=== PATIENT | female | born 1995 | race Hispanic/Latino ===

== ENCOUNTER 2018-08-04 19:33 | Emergency (ER) | payer BC, OTHER ==
[~2018-08-04] VITALS: Ht 162.6 cm; Wt 56.8 kg
[2018-08-04] MEDS ORDERED: ZOFR4TAB16 PO (19:54)
[2018-08-04] MEDS ORDERED: CLON0.5T8 PO (19:54)
[2018-08-04 20:49] LABS: BASO % 0.4 % (0.0-1.0); EOS # 0.1 10^3/uL (0.0-0.50); EOS % 1.3 % (0.0-3.0); HEMATOCRIT 42.1 % (36.0-47.0); HEMOGLOBIN 13.6 g/dl (12.0-15.5); LYMPH # 2.7 10^3/uL (1.5-6.5); LYMPH % 28.4 % (24.0-44.0); MEAN CORPUSCULAR HEMOGLOBIN 27.3 pg (27.0-33.0); MEAN CORPUSCULAR HGB CONC 32.3 g/dl (32.0-36.5); MEAN CORPUSCULAR VOLUME 84.5 fl (80.0-96.0); MONO # 0.6 10^3/uL (0.0-0.8); MONO % 6.7 % (0.0-5.0); NEUTROPHILS % 62.9 % (36.0-66.0); PLATELET COUNT, AUTOMATED 246 10^3/uL (150-450); RED BLOOD COUNT 4.98 10^6/uL (4.00-5.40); WHITE BLOOD COUNT 9.5 10^3/uL (4.0-10.0)
[2018-08-04 21:11] LABS: HCG, SERUM QUALITATIVE NEGATIVE (NEGATIVE)
[2018-08-04] MEDS ORDERED: ONDANSETRON 4MG/2ML VIAL (J2405) IV ONE (21:15)
[2018-08-04] MEDS ORDERED: NS 1,000 ML IV ONE (21:15)
[2018-08-04 21:19] LABS: ALBUMIN 3.4 GM/DL (3.2-5.2); ALT/SGPT 17 U/L (12-78); BILIRUBIN,DIRECT 0.1 MG/DL (0.0-0.2); BILIRUBIN,TOTAL 0.6 MG/DL (0.2-1.0); BLOOD UREA NITROGEN 10 MG/DL (7-18); CALCIUM LEVEL 8.9 MG/DL (8.5-10.1); CARBON DIOXIDE LEVEL 24 MEQ/L (21-32); CHLORIDE LEVEL 106 MEQ/L (98-107); CREATININE FOR GFR 0.74 MG/DL (0.55-1.30); GLOMERULAR FILTRATION RATE > 60.0 (>60); GLUCOSE, FASTING 65 MG/DL (70-100); LIPASE 105 U/L (73-393); SODIUM LEVEL 140 MEQ/L (136-145); TOTAL PROTEIN 7.7 GM/DL (6.4-8.2)
[2018-08-04 21:38] LABS: CK-MB VALUE MASS < 1.0 NG/ML (<3.6); CPK CREATINE PHOSPHOKINASE 77 U/L (26-192); TROPONIN I < 0.02 NG/ML (< 0.10)
[2018-08-04] MEDS ORDERED: METOCLOPRAMIDE INJ 10MG/2ML VIAL (J2765) IV ONE (22:15)
[2018-08-04] MEDS ORDERED: GI COCKTAIL 50ML BTL(HYOSCYAMINE/MAALOX/LIDOCAINE VISCOUS)(1:3:1) PO ONE (22:15)
[2018-08-04] MEDS ORDERED: ONDA4TAB6 PO (22:52)
[2018-08-04] MEDS ORDERED: MACR100C43 PO (22:52)
[2018-08-04 23:05] VITALS: BP 98/64
[2018-08-04] MEDS ORDERED: NITROFURANTOIN (MACROBID) 100 MG CAP PO ONE (23:15)
--- NOTE | 2018-08-05 02:23 | REP ---
Clinical: Chest and lower abdominal pain . Comparison: None . Technique: PA and lateral. Findings: The mediastinum and cardiac silhouette are normal. The lung roy are clear and without acute consolidation, effusion, or pneumothorax. The skeletal structures are intact and normal. Impression: 1. No acute cardiopulmonary process. Electronically Signed by Omega Pérez MD 08/05/2018 02:14 A
--- NOTE | 2018-08-05 15:08 | ECGEPIP ---
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
== END 2018-08-04 23:23 | disposition home or self-care (01) ==
LOC: M ED 19:33
DX: N39.0 Urinary tract infection, site not specified (principal); K21.9 Gastro-esophageal reflux disease without esophagitis; F41.9 Anxiety disorder, unspecified; Q87.40 Marfan syndrome, unspecified; Z79.899 Other long term (current) drug therapy; Z88.0 Allergy status to penicillin; Z88.8 Allergy status to other drugs, medicaments and biological substances
CPT/HCPCS: 71046; 80048; 80076; 81001; 82550; 82553; 83690; 84484; 84703; 85025; 87086; 93005; 96361; 96374; 96375; 99284; J2405; J2765

== ENCOUNTER → 2018-10-28 | Outpatient (CLI) | payer BC, OTHER ==
[~2018-10-28] MED LIST: APRITAB PO; CLAR10CA3 PO; CLON0.5T17 PO; CLON0.5T2 PO; FAMO1TAB11; FLON1SPR NARES; HYDR-3363 PO; LEXA5TAB13 PO; LITH300C; LITH300C PO; LITH600C; LORA1TAB4 PO; MACR100C43 PO; METHACHOLINE KIT (J7674) INH ONE; MIRA3350 PO; ONDA4TAB6 PO; PANT-23 PO; PROTPAK PO; PROV108A INH; REGL5TAB2 PO; ZANT150T40 PO; ZOFR4TAB16 PO; [UNRECOGNIZED DRUG - OTHER] PO; medical marijuana PO
--- NOTE | 2018-10-28 07:55 | PFTRPT ---
Height: 64.00 Inches Weight: 108.00 Lbs BSA: 1.51 Diagnosis: R07.9 DATE OF PROCEDURE: 10/28/2018 ORDERED BY: Dr. Lanza Spirometry: Study of excellent technical quality. Forced vital capacity normal. FEV1 in proportion. Obstructive index is, therefore, normal. Flow Volume Loop: Expiratory limb of the flow volume loop is normal. Lung Volumes: Total lung capacity normal. Residual volume suggests some degree of air trapping. Diffusing Capacity: Diffusing capacity is reduced but is appropriate for alveolar volume. Hemoglobin: No hemoglobin available for correction. Airway Mechanics: Airway resistance and conductance are normal. IMPRESSION: Cannot rule out a degree of air trapping. Decreased diffusing capacity. Please correlate clinically. MTDD
--- NOTE | 2018-10-28 08:56 | PFTRPT ---
Height: 64.00 Inches Weight: 108.00 Lbs BSA: 1.51 Diagnosis: R07.9 DATE OF PROCEDURE: 10/28/2018 ORDERED BY: Dr. Lanza INTERPRETATION: Study of excellent technical quality. Under protocol, methacholine was administered. At a dose of 2.5 mg or 13.875 CDUs, a 27% decline in the FEV1 was noted. PC of 1.25 is significant. Flow rates did return to baseline post bronchodilator administration. IMPRESSION: Positive methacholine challenge study. MTDD
== END ==
LOC: M CARPUL 06:24
PROVIDERS: ATTEND Internal Medicine Cardiovascular Disease
DX: R07.9 Chest pain, unspecified (principal); Q87.410 Marfan syndrome with aortic dilation
CPT/HCPCS: 94010; 94070; 94726; 94729; J7674

== ENCOUNTER 2018-11-29 18:59 | Emergency (ER) | payer OTHER ==
[~2018-11-29] VITALS: Ht 162.6 cm; Wt 52.7 kg
[~2018-11-29 18:59] MED LIST changes: -APRITAB PO; -CLAR10CA3 PO; -CLON0.5T17 PO; -CLON0.5T2 PO; +CLON0.5T8 PO; -FAMO1TAB11; -FLON1SPR NARES; -HYDR-3363 PO; -LEXA5TAB13 PO; -LITH300C; -LITH300C PO; -LITH600C; -LORA1TAB4 PO; -METHACHOLINE KIT (J7674) INH ONE; -MIRA3350 PO; -PANT-23 PO; -PROTPAK PO; -PROV108A INH; -REGL5TAB2 PO; -ZANT150T40 PO; -[UNRECOGNIZED DRUG - OTHER] PO; -medical marijuana PO
[2018-11-29] MEDS ORDERED: LITH300C PO (19:36)
[2018-11-29] MEDS ORDERED: HYDR-3363 PO (19:41)
[2018-11-29] MEDS ORDERED: APRITAB PO (19:41)
[2018-11-29] MEDS ORDERED: PROTPAK PO (19:41)
[2018-11-29] MEDS ORDERED: PROV108A INH (19:41)
[2018-11-29] MEDS ORDERED: CLAR10CA3 PO (19:46)
[2018-11-29] MEDS ORDERED: FLON1SPR NARES (19:46)
[2018-11-29] MEDS ORDERED: REGL5TAB2 PO (19:46)
[2018-11-29] MEDS ORDERED: ZANT150T40 PO (19:46)
[2018-11-29] MEDS ORDERED: METAL LOCK LOOP XX ONE (20:13)
[2018-11-29] MEDS ORDERED: clonazePAM 1 MG TAB PO ONE (20:30)
[2018-11-29 21:13] LABS: HEMATOCRIT 39.7 % (36.0-47.0); HEMOGLOBIN 12.7 g/dl (12.0-15.5); MEAN CORPUSCULAR HEMOGLOBIN 26.9 pg (27.0-33.0); MEAN CORPUSCULAR VOLUME 84.1 fl (80.0-96.0); PLATELET COUNT, AUTOMATED 296 10^3/uL (150-450); RED BLOOD COUNT 4.72 10^6/uL (4.00-5.40); WHITE BLOOD COUNT 7.8 10^3/uL (4.0-10.0)
[2018-11-29 21:23] LABS: HCG, SERUM QUALITATIVE NEGATIVE (NEGATIVE)
[2018-11-29 21:26] LABS: AMPHETAMINES LEVEL URINE NEGATIVE (NEGATIVE); BARBITURATES URINE NEGATIVE (NEGATIVE); BENZODIAZEPINES URINE NEGATIVE (NEGATIVE); CANNABINOIDS URINE NEGATIVE (NEGATIVE); COCAINE METABOLITE URINE NEGATIVE (NEGATIVE); METHADONE URINE NEGATIVE (NEGATIVE); OPIATES URINE NEGATIVE (NEGATIVE); PHENCYCLIDINE URINE NEGATIVE (NEGATIVE)
[2018-11-29 21:28] LABS: ACETAMINOPHEN LEVEL < 2.0 UG/ML (10.0-30.0); ALBUMIN 3.5 GM/DL (3.2-5.2); ALT/SGPT 14 U/L (12-78); BILIRUBIN,DIRECT < 0.1 MG/DL (0.0-0.2); BILIRUBIN,TOTAL 0.2 MG/DL (0.2-1.0); BLOOD UREA NITROGEN 10 MG/DL (7-18); CALCIUM LEVEL 8.9 MG/DL (8.5-10.1); CARBON DIOXIDE LEVEL 29 MEQ/L (21-32); CHLORIDE LEVEL 106 MEQ/L (98-107); CREATININE FOR GFR 0.84 MG/DL (0.55-1.30); ETHYL ALCOHOL (ETHANOL) 0.003 % (0.000-0.010); GLOMERULAR FILTRATION RATE > 60.0 (>60); GLUCOSE, FASTING 81 MG/DL (70-100); POTASSIUM SERUM 3.7 MEQ/L (3.5-5.1); SALICYLATE LEVEL < 1.7 MG/DL (5.0-30.0); SODIUM LEVEL 141 MEQ/L (136-145); TOTAL PROTEIN 7.3 GM/DL (6.4-8.2)
[2018-11-29 23:04] VITALS: BP 106/63
--- NOTE | 2018-11-30 08:39 | REP ---
CHEST PA AND LATERAL: 11/29/2018. Comparison: 08/04/2018. Clinical history: Chest pain. Findings: The lung roy are well inflated. There is no pleural effusion, acute infiltrate, atelectasis or mass. Heart is not enlarged. There is no vascular redistribution. The aorta is normal. Airway is intact. There is dextroconvex curve of the lower thoracic spine centered at about T10. No acute or focal bone lesion in the spine, ribs, clavicles, shoulders. No free air under the diaphragm. Impression: 1. No acute cardiopulmonary change. Electronically Signed by Jay Orozco MD 11/30/2018 07:30 P
--- NOTE | 2018-12-02 08:18 | ECGEPIP ---
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
== END 2018-11-29 23:09 | disposition home or self-care (01) ==
LOC: M ED 18:59
DX: F41.9 Anxiety disorder, unspecified (principal); F43.10 Post-traumatic stress disorder, unspecified; Q87.40 Marfan syndrome, unspecified; Z88.0 Allergy status to penicillin; Z88.8 Allergy status to other drugs, medicaments and biological substances; Z79.899 Other long term (current) drug therapy
CPT/HCPCS: 71046; 80048; 80076; 80178; 80307; 84443; 84703; 85027; 93005; 99284; G0480

== ENCOUNTER 2018-12-03 11:10 | Inpatient (IN) | payer OTHER ==
[~2018-12-03] VITALS: Ht 162.6 cm; Wt 54.5 kg
[~2018-12-03 11:10] MED LIST changes: +APRITAB PO; +CLAR10CA3 PO; +FLON1SPR NARES; +HYDR-3363 PO; +LITH300C PO; +PROTPAK PO; +PROV108A INH; +REGL5TAB2 PO; +ZANT150T40 PO
[2018-12-03] MEDS ORDERED: medical marijuana PO (11:46)
[2018-12-03 12:22] LABS: HEMATOCRIT 38.8 % (36.0-47.0); HEMOGLOBIN 12.4 g/dl (12.0-15.5); MEAN CORPUSCULAR HEMOGLOBIN 27.3 pg (27.0-33.0); MEAN CORPUSCULAR VOLUME 85.5 fl (80.0-96.0); PLATELET COUNT, AUTOMATED 137 10^3/uL (150-450); RED BLOOD COUNT 4.54 10^6/uL (4.00-5.40); WHITE BLOOD COUNT 5.8 10^3/uL (4.0-10.0)
[2018-12-03 12:45] LABS: HCG, SERUM QUALITATIVE NEGATIVE (NEGATIVE)
[2018-12-03 12:49] LABS: ACETAMINOPHEN LEVEL < 2.0 UG/ML (10.0-30.0); ALBUMIN 3.4 GM/DL (3.2-5.2); ALT/SGPT 11 U/L (12-78); BILIRUBIN,DIRECT < 0.1 MG/DL (0.0-0.2); BILIRUBIN,TOTAL 0.2 MG/DL (0.2-1.0); BLOOD UREA NITROGEN 12 MG/DL (7-18); CALCIUM LEVEL 8.8 MG/DL (8.5-10.1); CARBON DIOXIDE LEVEL 27 MEQ/L (21-32); CHLORIDE LEVEL 107 MEQ/L (98-107); CREATININE FOR GFR 0.78 MG/DL (0.55-1.30); ETHYL ALCOHOL (ETHANOL) < 0.003 % (0.000-0.010); GLOMERULAR FILTRATION RATE > 60.0 (>60); GLUCOSE, FASTING 107 MG/DL (70-100); POTASSIUM SERUM 3.9 MEQ/L (3.5-5.1); SALICYLATE LEVEL < 1.7 MG/DL (5.0-30.0); SODIUM LEVEL 140 MEQ/L (136-145); TOTAL PROTEIN 7.1 GM/DL (6.4-8.2)
[2018-12-03 13:00] LABS: AMPHETAMINES LEVEL URINE NEGATIVE (NEGATIVE); BARBITURATES URINE NEGATIVE (NEGATIVE); BENZODIAZEPINES URINE NEGATIVE (NEGATIVE); CANNABINOIDS URINE POSITIVE (NEGATIVE); COCAINE METABOLITE URINE NEGATIVE (NEGATIVE); METHADONE URINE NEGATIVE (NEGATIVE); OPIATES URINE NEGATIVE (NEGATIVE); PHENCYCLIDINE URINE NEGATIVE (NEGATIVE)
[2018-12-03] MEDS ORDERED: traZODone 50 MG TAB PO PRN (14:30)
[2018-12-03] MEDS ORDERED: MAALOX 30 ML SUSP *UDC PO PRN (14:30)
[2018-12-03] MEDS ORDERED: MOM 30ML SUSPENSION UDC PO PRN (14:30)
[2018-12-03] MEDS ORDERED: ACETAMINOPHEN TAB 650MG DOSE (2X325MG) PO PRN (14:30)
[2018-12-03] MEDS ORDERED: CLON0.5T17 PO (15:03)
[2018-12-03] MEDS ORDERED: ONDA4TAB6 PO (15:03)
[2018-12-03] MEDS ORDERED: LORA1TAB12 PO (15:03)
[2018-12-03] MEDS ORDERED: PANT-23 PO (15:03)
[2018-12-03 15:30] VITALS: BP 118/82
[2018-12-03] MEDS ORDERED: ALBUTEROL 90 MCG/ACT 8GM HFA INHALER INH PRN (18:00)
[2018-12-03] MEDS: hydrOXYzine 50 MG TAB PO PRN (18:50)
[2018-12-03] MEDS: IBUPROFEN 400 MG TAB PO PRN (18:50)
[2018-12-03] MEDS: FLUTICASONE PROP 0.05% NASAL SPRAY 16 GM (FLONASE) NARES SCH (20:48)
[2018-12-03] MEDS: OLANZapine ORAL DISINTEGRATING TAB 5MG PO PRN (20:49)
[2018-12-04 06:29] VITALS: BP 84/52
[2018-12-04] MEDS: PANTOPRAZOLE 40MG TAB (PROTONIX) PO SCH (08:44)
[2018-12-04] MEDS: OLANZapine ORAL DISINTEGRATING TAB 5MG PO PRN ×2 (08:45→19:02)
[2018-12-04] MEDS: FAMOTIDINE 20 MG TAB PO SCH (09:00)
[2018-12-04] MEDS: IBUPROFEN 400 MG TAB PO PRN (09:46)
[2018-12-04] MEDS: LORATADINE 10 MG TAB PO SCH (09:46)
[2018-12-04] MEDS: FLUTICASONE PROP 0.05% NASAL SPRAY 16 GM (FLONASE) NARES SCH ×2 (09:46→21:24)
[2018-12-04] MEDS: DESOGESTREL PO SCH (09:47)
[2018-12-04] MEDS: ETHINYL ESTRADIOL PO SCH (09:47)
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
[2018-12-04 13:41] LABS: COMPLEMENT C3 119 MG/DL (90-180); COMPLEMENT C4 38 MG/DL (10-40)
--- NOTE | 2018-12-04 13:52 | HPE ---
DATE OF ADMISSION: 12/04/2018 This is a hospitalist history and physical on a patient admitted to inpatient mental health unit. PAST MEDICAL HISTORY: Asthma. She claims to have Marfan syndrome. She has a lot of upper respiratory infections. She had full pulmonary function testing, methacholine challenge 10/28/2018. Had a positive methacholine challenge suggesting bronchospastic disease. Diffusing capacity was normal. ALLERGIES: PENICILLIN, ADHESIVE TAPE, LAMICTAL. SOCIAL HISTORY: Per psychiatric history and physical (H and P). MEDICATIONS: - albuterol inhaler - Klonopin 0.5 mg twice a day as needed - oral contraceptive - fluticasone one spray twice a day - Claritin 10 mg daily - lorazepam 1 mg twice a day as needed - Zofran 4 mg every 6 hours as needed - Protonix 40 mg daily - ranitidine 150 mg daily REVIEW OF SYSTEMS: Says she has occasional wheezing. She says her hands and feet are stiff in the morning and painful. PHYSICAL EXAMINATION: Vital signs stable. She is alert and conversant, in no distress. Pupils equal, round, and reactive to light. Pharynx benign. Neck: No masses. Lungs: Entirely clear. Heart: Regular rate and rhythm. Abdomen: Soft, nontender, no masses. No peripheral edema. Normal strength in the arms and legs. She had no heart murmur. Arm span appeared grossly normal but was not measured. IMPRESSION: 1. Asthma. Continue her albuterol on an as-needed basis. She is not on daily controller medications, so her degree of asthma must be relatively mild. 2. Presumed gastroesophageal reflux disease (GERD). Continue her Protonix, which has been ordered. She augments this with ranitidine, which is currently on nationwide recall. She has Pepcid ordered here. 3. Various psychiatric conditions per psychiatry. Hospitalists are available for medical issues.
[2018-12-04 16:13] VITALS: BP 108/67
[2018-12-04] MEDS: traZODone 25MG PER 1/2 TABLET PO SCH (21:24)
--- NOTE | 2018-12-04 21:36 | REPVR ---
PROCEDURE INFORMATION: Exam: MR Head Without and With Contrast Exam date and time: 12/04/2018 12:32 PM Clinical history: 23 years old, female; Altered mental status/memory loss; Additional info: Memory loss, marino vasculitis TECHNIQUE: Imaging protocol: MR of the head without and with intravenous contrast. Contrast material: PROHANCE; Contrast volume: 10 ml; Contrast route: IV; COMPARISON: No relevant prior studies available. FINDINGS: Ventricular and subarachnoid spaces are normal. Major vascular flow voids at the skull base are preserved. No extra-axial fluid collection. No midline shift or intracranial mass effect. No pathologic white matter signal. No diffusion restriction. No pathologic intracranial enhancement. Visualized paranasal sinuses and mastoid air cells are clear. IMPRESSION: Unremarkable MRI of the brain with and without contrast. Electronically signed by: Dinesh Turner On 12/04/2018 21:35:46 PM
[2018-12-05] MEDS: PANTOPRAZOLE 40MG TAB (PROTONIX) PO SCH (07:15)
[2018-12-05 07:39] VITALS: BP 104/69
--- NOTE | 2018-12-05 08:18 | MHIPNPDOC ---
[facility] Progress Note Progress Note Inpatient Progress Note Flora Carrington MRN: N/A Date of : N/A Date of Service: 12/05/2018 History of Present Illness The patient, a 23 year old woman with a reported history of anxiety, presents to the inpatient mental health unit reportedly due to displeasure with her outpatient provider, increasing anxiety, memory problems and difficulty focusing. She is difficult to interview as she is quite tangential with a very short attention span. The patient has a history of marijuana use, however, she has notably had difficulty over the past month with increasing memory problems, anxiety and lack of ability to focus. She had been having mood irritation and variability, but she had specifically denied that she had any suicidality. She reports having a history of seizures, however, they're unclear whether they are pseudo seizures or not. She reports that she was being referred to a neurologist as an outpatient. Her primary problem she reports is panic attacks. Interval History The patient is met with today. She reports that she still has anxiety and that the Atarax is not as helpful. She continues to deny any suicidal or homicidal ideation. The initial MRI came back negative. Lab test still pending. EEG is still pending for tomorrow. The patient asked if she would be able to be discharged tomorrow and subsequently then return for the EEG at a later time as she was noting that she felt fairly stressed in this environment. We did discuss at length medication options and approaches as well as psycho-education related to her treatments. She did say Lexapro was helpful in the past and wondered if she could be tried on it again. Discuss oxazepam as an option; however, we would not be able to try it prior to the EEG. No major behavioral problems overnight. No significant difficulties. Review Of Systems Continued anxiety, some episodes of panic. Psychotherapy None on this visit. Vital Signs Reviewed. Mental Status Examination General: Fair hygiene Speech: Less pressured. Thought processes: More focused. MSK: Smooth and coordinated gait, no signs of tremors or involuntary orofacial movements Thought content: Preservation on anxiety Abstract reasoning, and computation: Intact Description of associations: Intact Description of abnormal or psychotic thoughts: Denies any suicidal or homicidal ideation. Denies any auditory or visual hallucinations. Does not appear to be responding to internal stimuli. Does not appear to be endorsing any bizarre or paranoid ideation. Judgment: Fair Insight: Limited Orientation: Alert and orientated 3 Cognition: Improved. Recent and remote memory: Mildly improved. Attention span and concentration: Improved. Fund of knowledge: Adequate Mood: "fine" Affect: Flat with a constricted range. Diagnoses Unspecified trauma stressor related disorder. Unspecified anxiety disorder. Rule out substance induced versus medically induced. Unspecified neurocognitive disorder. Rule out autism. Assessment and Plan Unspecified anxiety/trauma stressor related disorder: Start Lexapro 5 mg daily. Spent an extensive amount of time discussing risk, benefits, and potential side effects with patient as well as alternative options. Discussed the use of oxazepam in the future, but would not be able to try this evening due to EEG. Patient wishes to go tomorrow. Does not meet further involuntary criteria, and thus will be planned for a discharge tomorrow. Disposition Patient will be discharged tomorrow and she wishes to go and does not meet involuntary criteria and does not wished for further voluntary admission. Time Spent 30 minutes with greater than 50% of time spent on counseling such as coordination of care in extensive session discussing the psycho-education of anxiety, depression, PTSD, neurocognitive problems and marijuana use. Vital Signs Vital Signs Date Time Temp Pulse Resp B/P (MAP) Pulse Ox O2 Delivery O2 Flow Rate FiO2 12/05/18 07:39 97.0 95 18 104/69 (81) 12/03/18 14:18 99 Room Air Laboratory Data 24H Labs Laboratory Tests 2 12/04/18 12:54: Complement C3 119, Complement C4 38 Current Medications Current Medications Medications (Trade) Dose Ordered Sig/Mihir Route PRN Reason Start Time Stop Time Status Last Admin Dose Admin Acetaminophen (Tylenol Tab) 650 mg Q6HP PRN PO HEADACHE or DISCOMFORT 12/03/18 14:30 12/03/18 17:56 DC Al Hydrox/Mg Hydrox/Simethicone (Mylanta) 30 ml Q4HP PRN PO HEARTBURN/INDIGESTION 12/03/18 14:30 Albuterol Sulfate (Proventil, Ventolin Hfa) 2 puff QIDP PRN INH SHORTNESS OF BREATH 12/03/18 18:00 12/03/18 19:54 Famotidine (Pepcid) 20 mg DAILY PO 12/04/18 09:00 Fluticasone Propionate (Flonase 0.05% Nasal [place]) 1 spray BID NARES 12/03/18 21:00 12/04/18 21:24 Home Med (Med Rec Complete!) ASDIRECTED XX 12/03/18 15:15 12/03/18 15:07 DC Hydroxyzine HCl (Atarax) 50 mg Q6HP PRN PO ANXIETY/AGITATION 12/03/18 14:30 12/03/18 18:50 Ibuprofen (Advil) 400 mg Q6HP PRN PO PAIN 12/03/18 18:00 12/04/18 09:46 Loratadine (Claritin) 10 mg DAILY PO 12/04/18 09:00 12/04/18 09:46 Magnesium Hydroxide (Milk Of Magnesia) 30 ml DAILYPRN PRN PO CONSTIPATION 12/03/18 14:30 Miscellaneous (Unresolved Patient Own Med Order) SEE LABEL COMMENTS DAILY XX 12/03/18 09:00 12/03/18 19:21 DC Olanzapine (ZyPREXA ZYDIS) 5 mg Q6HP PRN PO ANXIETY/AGITATION 12/03/18 20:15 12/04/18 20:15 DC 12/04/18 19:02 Pantoprazole Sodium (Protonix) 40 mg DAILY PO 12/04/18 09:00 12/05/18 07:15 Patient Own Medication (Patient'S Own Med) 1 TABLET DAILY PO 12/04/18 09:00 12/04/18 09:47 Trazodone HCl (Desyrel) 25 mg QHS PO 12/04/18 21:00 12/04/18 21:24 Trazodone HCl (Desyrel) 50 mg QHSP PRN PO INSOMNIA 12/03/18 14:30 12/04/18 10:13 DC 12/03/18 22:10 Allergies Coded Allergies: Penicillins (Verified Allergy, Intermediate, hives, 11/29/18) hives lamotrigine (Verified Allergy, Intermediate, hives, 08/04/18) hives adhesive tape (Verified Allergy, Mild, redness, 11/29/18) pt states she is ok with EKG stickers but not tele stickers on for a long time MODESTA FELDMAN DO Dec 05, 2018 08:18
[2018-12-05] MEDS: FAMOTIDINE 20 MG TAB PO SCH (08:32)
[2018-12-05] MEDS: DESOGESTREL PO SCH (08:32)
[2018-12-05] MEDS: LORATADINE 10 MG TAB PO SCH (08:32)
[2018-12-05] MEDS: FLUTICASONE PROP 0.05% NASAL SPRAY 16 GM (FLONASE) NARES SCH ×2 (08:32→21:10)
[2018-12-05] MEDS: ETHINYL ESTRADIOL PO SCH (08:32)
[2018-12-05] MEDS ORDERED: INFLUENZA QUADRIVALENT PF VACCINE 0.5ML SYRINGE (90686) IM ONE (09:00)
[2018-12-05] MEDS ORDERED: FAMOTIDINE 20 MG TAB PO PRN (11:00)
[2018-12-05] MEDS: hydrOXYzine 50 MG TAB PO PRN (12:09)
[2018-12-05] MEDS: IBUPROFEN 400 MG TAB PO PRN (12:11)
[2018-12-05 18:00] VITALS: BP 127/86
[2018-12-05] MEDS ORDERED: ESCITALOPRAM OXALATE 5MG TABLET (LEXAPRO) PO ONE (20:15)
[2018-12-05] MEDS: traZODone 25MG PER 1/2 TABLET PO SCH (21:00)
[2018-12-06 06:30] VITALS: BP 105/59
[2018-12-06] MEDS ORDERED: PANTOPRAZOLE 40MG TAB (PROTONIX) PO SCH (07:00)
[2018-12-06] MEDS: DESOGESTREL PO SCH (08:43)
[2018-12-06] MEDS: ETHINYL ESTRADIOL PO SCH (08:43)
[2018-12-06] MEDS: LORATADINE 10 MG TAB PO SCH (08:43)
[2018-12-06] MEDS: FLUTICASONE PROP 0.05% NASAL SPRAY 16 GM (FLONASE) NARES SCH (08:43)
--- NOTE | 2018-12-06 09:41 | MHDSPDOC ---
[facility] Discharge Summary Discharge Summary DATE OF ADMISSION: Dec 03, 2018 at 14:29 DATE OF DISCHARGE: 12/06/18 Discharge Flora Carrington MRN: N/A Date of : N/A Date of Service: 12/06/2018 Diagnoses Unspecified trauma stressor related disorder. Unspecified anxiety disorder. Rule out substance induced versus medically induced. Unspecified neurocognitive disorder. Rule out autism. History of Present Illness The patient, a 23 year old woman with a reported history of anxiety, presents to the inpatient mental health unit reportedly due to displeasure with her outpatient provider, increasing anxiety, memory problems and difficulty focusing. She is difficult to interview as she is quite tangential with a very short attention span. The patient has a history of marijuana use, however, she has notably had difficulty over the past month with increasing memory problems, anxiety and lack of ability to focus. She had been having mood irritation and variability, but she had specifically denied that she had any suicidality. She reports having a history of seizures, however, they're unclear whether they are pseudo seizures or not. She reports that she was being referred to a neurologist as an outpatient. Her primary problem she reports is panic attacks. Consultants Involved Hospitalist/PCP screening Treatment and Progress On The Unit The patient was admitted to the unit. She had denied any suicidality for the entirety of her presentation from the ER to now. She primarily reported that she had come because she was unpleased with her outpatient care. She was evaluated and further workup was done as her cognitive scores were quite low much out of the proportion to be except for anxiety. Her initial laboratory work was unremarkable, demonstrating no signs, changes in her compliment factors and negative MRI. She was initially triage to an EEG and she initially reported having dissociative episodes. The patient was stopped on her clonazepam as she been given Ativan at he ER in [place]. After discussing with the patient at length, she reported that she was amenable to being restarted on Lexapro as she reported having done well on it in the past. Discussed the risks and benefits with the patient extensively. The patient did have improvement in her cognition with better intention as she went through her admission, which further suggested that the patient was likely possible relation to her marijuana use for cognitive impairment and panic attacks, however, the patient did not wish to consider this. She did well on the Lexapro and on the day of discharge, she had stated that she wished to go as she wondered if she could have her EG as an outpatient as she was more anxious in this setting. She had been denying a suicidalor homicidal ideation and had been able to attend to her basic needs, participate in her discharge planning and declined further voluntary admission and thus was not appropriate, thus was discharged in [facility] on the day of discharge. Discharge Assessment A 23-year-old woman with cognitive impairment and anxiety. It is unclear as to whether substance use from marijuana or potential medical cause could be contributing. Started her on an appropriate agent for anxiety and observed her, which she was able to tolerate it initially. Benzodiazepines were discussed, however, she will need close outpatient monitoring due to the history of marijuana use and a strong contract for ceasing of cannabis use in order to be treated with a benzodiazepine appropriately. Mental Status Examination General: Well dressed with good hygiene Speech: Spontaneous and fluid Thought processes: Linear and logical MSK: Smooth and coordinated gait, no signs of tremors or involuntary orofacial movements Thought content: Future orientated Abstract reasoning, and computation: Intact Description of associations: Intact Description of abnormal or psychotic thoughts: Denies any suicidal or homicidal ideation. Denies any auditory or visual hallucinations. Does not appear to be responding to internal stimuli. Does not appear to be endorsing any bizarre or paranoid ideation. Judgment: fair Insight: fair Orientation: Alert and orientated 3 Cognition: Mildly improved Recent and remote memory: Intact Attention span and concentration: Mildly improved Fund of knowledge: Adequate Mood: "okay" Affect: Euthymic with a full range Follow Up The social work team worked during the predischarge meeting in order to evaluate for further issues of lethality address them fully before discharge. They worked on safety planning with the patient's family members in order to ensure that the patient will have a safe and effective discharge. Time Spent The amount of time spent in the coordination of care for this patient was approximately 30 minutes. Sunday Vital Signs/I&Os Vital Signs Date Time Temp Pulse Resp B/P (MAP) Pulse Ox O2 Delivery O2 Flow Rate FiO2 12/06/18 06:30 98.2 107 16 105/59 (74) 12/03/18 14:18 99 Room Air Medications Scheduled Desogestrel-Ethinyl Estradiol (Apri 28 Day Tablet) 1 Each Tablet, 1 TAB PO DAILY, (Reported) Escitalopram Oxalate (Lexapro) 5 Mg Tablet, 5 MG PO QHS for mood for 7 Days, #7 Fluticasone Propionate (Flonase Allergy Relief) 9.9 Ml [place].susp, 1 SPRAY NARES BID, (Reported) Loratadine (Claritin) 10 Mg Capsule, 10 MG PO DAILY, (Reported) Pantoprazole Sodium (Pantoprazole Sodium) 40 Mg Tablet.dr, 40 MG PO DAILY, (Reported) Scheduled PRN Albuterol Sulfate (Proventil Hfa) 6.7 Gm Hfa.aer.ad, 2 PUFF INH QID PRN for SHORTNESS OF BREATH, (Reported) Ondansetron (Ondansetron Odt) 4 Mg Tab.rapdis, 4 MG PO Q6H PRN for NAUSEA OR VOMITING, (Reported) Ranitidine Hcl (Zantac) 150 Mg Tablet, 1 TAB PO DAILY PRN for HEARTBURN, (Reported) Allergies Coded Allergies: Penicillins (Verified Allergy, Intermediate, hives, 11/29/18) hives lamotrigine (Verified Allergy, Intermediate, hives, 08/04/18) hives adhesive tape (Verified Allergy, Mild, redness, 11/29/18) pt states she is ok with EKG stickers but not tele stickers on for a long time MODESTA FELDMAN DO Dec 06, 2018 09:41
[2018-12-06] MEDS ORDERED: LEXA5TAB13 PO (10:52)
[2018-12-06] MEDS ORDERED: ESCITALOPRAM OXALATE 5MG TABLET (LEXAPRO) PO SCH (21:00)
[2018-12-09 14:41] LABS: ANA (HEP2) Positive (.); ANTI DS-DNA AB <1:10 titer (.); Lyme Disease IgG/IgM Antibodie <0.91 ISR (0.00-0.90); Lyme Disease IgM Ab Quantitati <0.80 index (0.00-0.79); RNP ANTIBODY < 0.2 AI (0.0-0.9); SMITHS ANTIBODY < 0.2 AI (0.0-0.9); SSA SJOGRENS A >8.0 AI (0.0-0.9); SSB SJOGRENS B <0.2 AI (0.0-0.9)
== END 2018-12-06 12:00 | disposition home or self-care (01) | DRG 882 ==
LOC: M ED 11:10 → M ED INP 14:29 → M PSY 15:30
PROVIDERS: ADMIT Psychiatry & Neurology Psychiatry; ATTEND Psychiatry & Neurology Addiction Medicine
DX: F43.9 Reaction to severe stress, unspecified (principal); F19.280 Other psychoactive substance dependence with psychoactive substance-induced anxiety disorder; F41.9 Anxiety disorder, unspecified; R41.9 Unspecified symptoms and signs involving cognitive functions and awareness; Z88.0 Allergy status to penicillin; Z88.8 Allergy status to other drugs, medicaments and biological substances; Z91.048 Other nonmedicinal substance allergy status; J45.909 Unspecified asthma, uncomplicated; K21.9 Gastro-esophageal reflux disease without esophagitis; F84.0 Autistic disorder; Z79.899 Other long term (current) drug therapy

== ENCOUNTER 2018-12-10 14:17 | Emergency (ER) | payer OTHER ==
[~2018-12-10] VITALS: Ht 162.6 cm; Wt 55.5 kg
[~2018-12-10 14:17] MED LIST changes: +CLON0.5T17 PO; +LEXA5TAB13 PO; +LORA1TAB12 PO; +PANT-23 PO; +medical marijuana PO
[2018-12-10 16:32] LABS: BASO % 0.5 % (0.0-1.0); EOS # 0.1 10^3/uL (0.0-0.5); EOS % 1.1 % (0.0-3.0); HEMATOCRIT 35.4 % (36.0-47.0); HEMOGLOBIN 11.4 g/dl (12.0-15.5); LYMPH # 2.8 10^3/uL (1.5-5.0); LYMPH % 35.1 % (24.0-44.0); MEAN CORPUSCULAR HGB CONC 32.2 g/dl (32.0-36.5); MEAN CORPUSCULAR VOLUME 83.7 fl (80.0-96.0); MONO # 0.6 10^3/uL (0.0-0.8); MONO % 7.3 % (0.0-5.0); NEUTROPHILS # 4.4 10^3/uL (1.5-8.5); NEUTROPHILS % 55.7 % (36.0-66.0); PLATELET COUNT, AUTOMATED 194 10^3/uL (150-450); RED BLOOD COUNT 4.23 10^6/uL (4.00-5.40); WHITE BLOOD COUNT 7.9 10^3/uL (4.0-10.0)
--- NOTE | 2018-12-10 17:02 | REP ---
Head CT without contrast: History: Altered mental status. Comparison study: Comparison brain MRI study December 04, 2018. CT findings: Bone window settings demonstrate an intact bony calvarium. There is no evidence of skull fracture or incidental bony calvarial lesion. The visualized paranasal sinuses appear clear. No intraorbital abnormality is seen. On soft tissue window setting images; the lateral, third, and fourth ventricles are normal in size and position. Aguayo-white differentiation pattern is normal above and below the tentorium. There are is no evidence of intracranial hemorrhage. No mass, edema, infarction, or midline shift is seen. No extra-axial fluid collection is appreciated. Impression: Negative noncontrast head CT. Electronically Signed by Chau Ariza MD 12/10/2018 04:52 P
[2018-12-10 17:10] LABS: ACETAMINOPHEN LEVEL < 2.0 UG/ML (10.0-30.0); ALBUMIN 3.3 GM/DL (3.2-5.2); ALT/SGPT 15 U/L (12-78); BILIRUBIN,DIRECT < 0.1 MG/DL (0.0-0.2); BILIRUBIN,TOTAL 0.5 MG/DL (0.2-1.0); BLOOD UREA NITROGEN 11 MG/DL (7-18); CALCIUM LEVEL 8.9 MG/DL (8.5-10.1); CARBON DIOXIDE LEVEL 29 MEQ/L (21-32); CHLORIDE LEVEL 107 MEQ/L (98-107); CK-MB VALUE MASS < 1.0 NG/ML (<3.6); CPK CREATINE PHOSPHOKINASE 77 U/L (26-192); CREATININE FOR GFR 0.79 MG/DL (0.55-1.30); ETHYL ALCOHOL (ETHANOL) < 0.003 % (0.000-0.010); GLOMERULAR FILTRATION RATE > 60.0 (>60); GLUCOSE, FASTING 86 MG/DL (70-100); POTASSIUM SERUM 3.8 MEQ/L (3.5-5.1); SALICYLATE LEVEL < 1.7 MG/DL (5.0-30.0); SODIUM LEVEL 143 MEQ/L (136-145); TOTAL PROTEIN 6.7 GM/DL (6.4-8.2); TROPONIN I < 0.02 NG/ML (< 0.10)
[2018-12-10 17:14] VITALS: BP 105/55
--- NOTE | 2018-12-10 20:41 | ECGEPIP ---
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
== END 2018-12-10 17:33 | disposition home or self-care (01) ==
LOC: M ED 14:17
DX: F41.9 Anxiety disorder, unspecified (principal); R41.82 Altered mental status, unspecified; F90.9 Attention-deficit hyperactivity disorder, unspecified type; F43.10 Post-traumatic stress disorder, unspecified; F31.9 Bipolar disorder, unspecified; Z88.0 Allergy status to penicillin; Z88.8 Allergy status to other drugs, medicaments and biological substances; Z91.048 Other nonmedicinal substance allergy status; Z79.899 Other long term (current) drug therapy
CPT/HCPCS: 70450; 80048; 80076; 82550; 82553; 84443; 84484; 84702; 85025; 93005; 99284; G0480

== ENCOUNTER 2019-02-28 13:37 | Emergency (ER) | payer OTHER ==
[~2019-02-28 13:37] MED LIST changes: -FAMO1TAB11; -LITH300C; -LITH600C; -LORA1TAB12 PO; +LORA1TAB4 PO; -MIRA3350 PO; -[UNRECOGNIZED DRUG - OTHER] PO
[2019-02-28] MEDS ORDERED: FAMO1TAB11 (13:57)
[2019-02-28] MEDS ORDERED: LITH600C (13:57)
[2019-02-28] MEDS ORDERED: LITH300C (13:57)
[2019-02-28 14:23] LABS: HEMATOCRIT 44.2 % (36.0-47.0); HEMOGLOBIN 13.7 g/dl (12.0-15.5); MEAN CORPUSCULAR HEMOGLOBIN 28.1 pg (27.0-33.0); MEAN CORPUSCULAR VOLUME 90.8 fl (80.0-96.0); PLATELET COUNT, AUTOMATED 145 10^3/uL (150-450); RED BLOOD COUNT 4.87 10^6/uL (4.00-5.40); WHITE BLOOD COUNT 6.7 10^3/uL (4.0-10.0)
[2019-02-28 15:04] LABS: HCG, SERUM QUALITATIVE NEGATIVE (NEGATIVE)
[2019-02-28 15:27] LABS: ACETAMINOPHEN LEVEL < 2.0 UG/ML (10.0-30.0); ALBUMIN 3.7 GM/DL (3.2-5.2); ALT/SGPT 13 U/L (12-78); BILIRUBIN,DIRECT < 0.1 MG/DL (0.0-0.2); BILIRUBIN,TOTAL 0.3 MG/DL (0.2-1.0); BLOOD UREA NITROGEN 8 MG/DL (7-18); CALCIUM LEVEL 9.4 MG/DL (8.5-10.1); CARBON DIOXIDE LEVEL 27 MEQ/L (21-32); CHLORIDE LEVEL 107 MEQ/L (98-107); ETHYL ALCOHOL (ETHANOL) < 0.003 % (0.000-0.010); GLOMERULAR FILTRATION RATE > 60.0 (>60); GLUCOSE, FASTING 78 MG/DL (70-100); LITHIUM LEVEL 0.83 MEQ/L (0.60-1.20); SALICYLATE LEVEL < 1.7 MG/DL (5.0-30.0); SODIUM LEVEL 140 MEQ/L (136-145); TOTAL PROTEIN 7.3 GM/DL (6.4-8.2)
--- NOTE | 2019-02-28 15:33 | REP ---
Clinical: Cough . Comparison: 11/29/2018 . Findings: The mediastinum and cardiac silhouette are stable and within normal limits for portable technique. The lung roy are clear without acute consolidation, effusion, or pneumothorax. Skeletal structures are intact. Impression: No acute cardiopulmonary process appreciated. Electronically Signed by Omega Pérez MD 02/28/2019 03:24 P
[2019-02-28 17:45] LABS: AMPHETAMINES LEVEL URINE NEGATIVE (NEGATIVE); BARBITURATES URINE NEGATIVE (NEGATIVE); BENZODIAZEPINES URINE NEGATIVE (NEGATIVE); CANNABINOIDS URINE NEGATIVE (NEGATIVE); COCAINE METABOLITE URINE NEGATIVE (NEGATIVE); METHADONE URINE NEGATIVE (NEGATIVE); OPIATES URINE NEGATIVE (NEGATIVE); PHENCYCLIDINE URINE NEGATIVE (NEGATIVE)
[2019-02-28] MEDS ORDERED: ISOVUE-370 76% 100ML VIAL (Q9967) As Ordered ONE (18:14)
[2019-02-28] MEDS ORDERED: NS 1,000 ML IV ONE (18:15)
[2019-02-28] MEDS ORDERED: GI COCKTAIL 50ML BTL(HYOSCYAMINE/MAALOX/LIDOCAINE VISCOUS)(1:3:1) PO ONE (18:15)
[2019-02-28] MEDS ORDERED: ONDANSETRON 4MG/2ML VIAL (J2405) IV ONE (18:15)
--- NOTE | 2019-02-28 19:44 | REPVR ---
PROCEDURE INFORMATION: Exam: CT Abdomen And Pelvis With Contrast Exam date and time: 02/28/2019 6:43 PM Age: 23 years old Clinical indication: Abdominal pain TECHNIQUE: Imaging protocol: Computed tomography of the abdomen and pelvis with intravenous contrast. Radiation optimization: All CT scans at this facility use at least one of these dose optimization techniques: automated exposure control; mA and/or kV adjustment per patient size (includes targeted exams where dose is matched to clinical indication); or iterative reconstruction. Contrast material: ISOVUE 370; Contrast volume: 100 ml; Contrast route: IV; COMPARISON: No relevant prior studies available. FINDINGS: Lungs: No suspicious mass or airspace process in the visualized lung bases. Liver: Liver appears normal with no focal abnormality. Gallbladder and bile ducts: Gallbladder is present and shows no evidence of gallstone. Pancreas: Pancreas appears normal. No focal mass or peripancreatic inflammation. Spleen: Spleen appears homogeneous without focal mass. Adrenals: Adrenal glands are normal in appearance. Kidneys and ureters: Kidneys appear normal, with no stone, solid mass or hydronephrosis. Stomach and bowel: No evidence of small bowel obstruction. No evidence of acute diverticulitis. Appendix: Appendix is not seen. No RLQ inflammation to suggest appendicitis. Intraperitoneal space: No pneumoperitoneum. Trace free fluid is present in the pelvis. No abnormal pelvic mass. Vasculature: No aortic aneurysm. Main portal and splenic veins enhance normally. Lymph nodes: No enlarged lymph nodes. Small, nonspecific mesenteric and RLQ lymph nodes are present. Bladder: Urinary bladder appears normal. Bones/joints: Bony structures show no acute fracture or destructive process. IMPRESSION: 1. No acute or concerning focal abdominal or pelvic process 2. Prominent colonic stool suggesting an element of constipation with rectal fecal impaction Electronically signed by: Otsi Armas On 02/28/2019 19:43:45 PM
[2019-02-28] MEDS ORDERED: MIRA3350 PO (19:53)
[2019-02-28] MEDS ORDERED: [UNRECOGNIZED DRUG - OTHER] PO (19:54)
[2019-02-28 20:25] VITALS: BP 118/65
--- NOTE | 2019-03-02 15:06 | ECGEPIP ---
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
== END 2019-02-28 20:27 | disposition home or self-care (01) ==
LOC: EDBD 13:37 → M ED 13:37
DX: K59.00 Constipation, unspecified (principal); F12.90 Cannabis use, unspecified, uncomplicated; F31.9 Bipolar disorder, unspecified; J45.909 Unspecified asthma, uncomplicated; K21.9 Gastro-esophageal reflux disease without esophagitis; R94.31 Abnormal electrocardiogram [ECG] [EKG]; Z79.51 Long term (current) use of inhaled steroids; Z79.899 Other long term (current) drug therapy
CPT/HCPCS: 71045; 74177; 80048; 80076; 80178; 80307; 84443; 84703; 85027; 87804; 87880; 93005; 96361; 96374; 99285; G0463; G0480; J2405; Q9967

== ENCOUNTER → 2019-02-28 | Outpatient (REF) | payer OTHER ==
[~2019-02-28] MED LIST changes: +CLON0.5T2 PO; -CLON0.5T8 PO; +FAMO1TAB11; +LITH300C; +LITH600C; +MIRA3350 PO; +[UNRECOGNIZED DRUG - OTHER] PO
== END ==
LOC: M SFHCLERA 12:42
PROVIDERS: ATTEND Nurse Practitioner Family
DX: R53.81 Other malaise (principal)